=== PATIENT | male | born 1990 | race Caucasian/White ===

== ENCOUNTER 2017-02-04 11:17 | Emergency (ER) | payer SELFPAY ==
[~2017-02-04] VITALS: Ht 165.1 cm; Wt 72.6 kg
== END 2017-02-04 18:26 | disposition home or self-care (01) ==
LOC: ER1 11:17
DX: S61.213A Laceration without foreign body of left middle finger without damage to nail, initial encounter (principal); W26.0XXA Contact with knife, initial encounter; Y92.69 Other specified industrial and construction area as the place of occurrence of the external cause; Y99.0 Civilian activity done for income or pay; Z23 Encounter for immunization
CPT/HCPCS: 73140; 90471; 90715; 96374; 99284; J0690; J7050; Q0162